=== PATIENT | female | born 1950 ===

== ENCOUNTER 2017-02-27 22:18 | Emergency (ER) | payer MEDICARE, OTHER ==
[2017-02-27 22:26] VITALS: RESP 18
--- NOTE | 2017-02-27 23:25 | C.PDOC ---
History Of Present Illness 67 year old female who presents to the ER with a complaint of itchy hives to the arms, chest, neck, and scalp. Patient reports she went to the beach this afternoon; she denies use of any new lotions or topical creams. Patient states she took 2 benadryl at 20:30; denies difficulty swallowing or difficulty breathing. Time Seen by Provider: 02/27/17 23:10 Chief Complaint (Nursing): Abnormal Skin Integrity History Per: Patient History/Exam Limitations: no limitations Onset/Duration Of Symptoms: Hrs Current Symptoms Are (Timing): Still Present Location Of Injury: Right: Arm, Left: Arm, Anterior: Head (Scalp), Posterior: Head, Neck Quality Of Symptoms: Itching Recent travel outside of the [place]: No Past Medical History Reviewed: Historical Data, Nursing Documentation, Vital Signs Vital Signs: Last Vital Signs Temp 97.7 F 02/27/17 22:24 Pulse 66 02/27/17 22:24 Resp 18 02/27/17 22:24 BP 145/74 02/27/17 22:24 Pulse Ox 95 02/28/17 00:24 - Medical History PMH: Arthritis, Asthma, Back Problems, HTN Surgical History: Cholecystectomy Family History: States: Unknown Family Hx - Social History Hx Tobacco Use: No Hx Alcohol Use: No Hx Substance Use: No - Immunization History Hx Tetanus Toxoid Vaccination: No Hx Influenza Vaccination: No Hx Pneumococcal Vaccination: No Review Of Systems Constitutional: Negative for: Fever, Chills ENT: Negative for: Mouth Pain, Mouth Swelling, Throat Pain, Throat Swelling Respiratory: Negative for: Shortness of Breath, Wheezing Skin: Positive for: Rash Physical Exam - Physical Exam Appears: Non-toxic Skin: Warm, Dry, Rash (Scattered large 3-4cm urticara to anterior forearms, chest, and posterior neck. No swelling.) Head: Atraumatic, Normacephalic Oral Mucosa: Moist Tongue: No Swelling Lips: Normal Appearing, No Swelling Throat: Normal, No Erythema, No Other (Swelling) Neck: Normal, Supple Chest: Symmetrical, No Tenderness Cardiovascular: Rhythm Regular, No Murmur Respiratory: Normal Breath Sounds, No Stridor, No Wheezing Gastrointestinal/Abdominal: Soft, No Tenderness Neurological/Psych: Oriented x3, Normal Speech, Normal Cognition ED Course And Treatment O2 Sat by Pulse Oximetry: 95 (Room air) Pulse Ox Interpretation: Normal Medical Decision Making Medical Decision Making: Plan: Prednisone Pepcid Will observe in ER for resolution of symptoms. 1236 am pt with marked reduction in itching and urticaria, only mild erythema persists. will d/c with Benadryl, pepcid and prednisone. f/u pmd. Disposition Counseled Patient/Family Regarding: Diagnosis, Need For Followup, Rx Given - Disposition Referrals: Laura Spring MD [Staff Provider] - Disposition: HOME/ ROUTINE Disposition Time: 00:37 Condition: IMPROVED Additional Instructions: Take medications as prescribed. Benadryl makes you sleepy- no driving when taking this. Avoid any new topical products or foods. Follow up with Dr Pineda on Wednesday. Return to ER for any worsening symptoms. Prescriptions: DiphenhydrAMINE [Benadryl] 25 mg PO Q6 #28 cap Famotidine [Pepcid] 20 mg PO DAILY #14 tab predniSONE [predniSONE Tab] 2 tab PO DAILY #8 tab Instructions: Urticaria (ED) Forms: [facility] (Frisian), General Discharge Instructions - Clinical Impression Clinical Impression: Urticaria
[2017-02-28 00:44] VITALS: BP 114/68; PULSE 62; TEMP 98.1
[2017-02-28 20:49] VITALS: O2SAT 95
== END 2017-02-28 01:01 | disposition home or self-care (01) ==
LOC: C.ER 22:18
DX: L50.9 Urticaria, unspecified (principal)